=== PATIENT | male | born 1940 | race Asian ===

== ENCOUNTER 2024-07-02 13:14 | Emergency (ER) | payer OTHER ==
[~2024-07-02] VITALS: Ht 172.7 cm; Wt 55.0 kg
[2024-07-02 13:16] VITALS: O2SAT 100
[2024-07-02] MEDS: SODIUM CHLORIDE 0.9% 1,000 ML IV ONE (13:39)
[2024-07-02 13:47] LABS: BASOPHILS % 0.5 % (0.0-2.0); DIFFERENTIAL COMMENT 0; EOSINOPHILS % 0.5 % (0.0-5.0); HEMOGLOBIN. 12.7 g/dL (14.0-18.0); LYMPHOCYTES % 12.3 % (20.0-50.0); MEAN CORPUSCULAR HEMOGLOBIN 22.2 pg (28.0-32.0); MEAN CORPUSCULAR VOLUME 71.6 fL (80.0-94.0); MEAN PLATELET VOLUME 7.6 fl (7.4-10.4); MONOCYTES % 7.4 % (2.0-8.0); NEUTROPHILS % 79.3 % (40.0-76.0); PLATELET 169 x1000/uL (130-400); RED BLOOD CELL COUNT 5.73 mill/uL (4.7-6.1); WHITE BLOOD COUNT 5.3 x1000/uL (4.5-11.0)
[2024-07-02 13:48] LABS: CHLORIDE 100 mEq/L (98-107); POTASSIUM 3.8 mEq/L (3.5-5.1); SODIUM 135 mEq/L (136-145)
[2024-07-02 13:49] LABS: CARBON DIOXIDE 31 mEq/L (21-32)
[2024-07-02 13:53] LABS: PROTHROMBIN TIME 10.9 sec (9.6-11.0)
[2024-07-02 13:54] LABS: CREATININE 1.1 mg/dL (0.6-1.3); GLUCOSE 124 mg/dL (70-105)
[2024-07-02 13:55] LABS: TROPONIN I HIGH SENSITIVITY 4 ng/L (3.0-53); UREA NITROGEN BLOOD 18 mg/dL (9-23)
[2024-07-02 16:00] VITALS: BP 121/61; PULSE 84; RESP 16; TEMP 36.89184; O2SAT 100
== END 2024-07-02 16:16 | disposition home or self-care (01) ==
LOC: EDBD 13:14 → ER 13:14
DX: R55 Syncope and collapse (principal)
CPT/HCPCS: 99284; 80048; 85025; 85610; 84484; 36415; 93005; J7030

== ENCOUNTER 2024-08-22 14:58 | Emergency (ER) | payer OTHER ==
[~2024-08-22] VITALS: Ht 167.6 cm; Wt 50.0 kg
[2024-08-22 20:10] LABS: HEMATOCRIT. 37.9 % (42.0-52.0); HEMOGLOBIN. 12.3 g/dL (14.0-18.0); MEAN CORPUSCULAR HEMOGLOBIN 22.3 pg (28.0-32.0); MEAN CORPUSCULAR HGB CONC 32.5 g/dL (31.0-37.0); MEAN CORPUSCULAR VOLUME 68.6 fL (80.0-94.0); MEAN PLATELET VOLUME 8.2 fl (7.4-10.4); PLATELET 140 x1000/uL (130-400); RED BLOOD CELL COUNT 5.52 mill/uL (4.7-6.1); RED CELL DISTRIBUTION WIDTH 15.4 % (11.6-14.6); WHITE BLOOD COUNT 8.1 x1000/uL (4.5-11.0)
[2024-08-22 20:11] LABS: DIFFERENTIAL COMMENT 1
[2024-08-22 20:14] LABS: CHLORIDE 96 mEq/L (98-107); POTASSIUM 3.9 mEq/L (3.5-5.1); SODIUM 129 mEq/L (136-145)
[2024-08-22 20:15] LABS: CARBON DIOXIDE 28 mEq/L (21-32)
[2024-08-22 20:16] LABS: CALCIUM 8.7 mg/dL (8.7-10.4)
[2024-08-22 20:20] LABS: CREATININE 0.9 mg/dL (0.6-1.3); GLUCOSE 121 mg/dL (70-105)
[2024-08-22 20:21] LABS: UREA NITROGEN BLOOD 17 mg/dL (9-23)
[2024-08-22 20:47] LABS: CLARITY URINE CLOUDY (CLEAR); COLOR URINE YELLOW (YELLOW); GLUCOSE URINE NEGATIVE (NEGATIVE); KETONES URINE NEGATIVE (NEGATIVE); OCCULT BLOOD URINE 1+ (NEGATIVE); PROTEIN URINE TRACE (NEGATIVE); SPECIFIC GRAVITY URINE 1.018 (1.005-1.030)
[2024-08-22 20:48] LABS: NITRITE URINE NEGATIVE (NEGATIVE)
[2024-08-22 20:49] LABS: LEUKOCYTE ESTERASE URINE 2+ (NEGATIVE)
[2024-08-22 20:59] LABS: BACTERIA URINE 4+; SQUAMOUS EPITHELIAL CELL URINE FEW /lpf (RARE/1+); WBC URINE 25-50 /hpf (0-2)
[2024-08-22] MEDS: SODIUM CHLORIDE 0.9% 1,000 ML IV ONE (21:05)
[2024-08-22 21:59] LABS: ANISOCYTOSIS 1+; HYPOCHROMASIA 1+; MICROCYTOSIS 3+; PLATELET ESTIMATE NORMAL
[2024-08-22] MEDS: CEFTRIAXONE 1GM/50ML 50 ML IV ONE (22:09)
[2024-08-22] MEDS ORDERED: CEPH500T MT (23:45)
[2024-08-23 00:26] VITALS: BP 179/89; PULSE 86; RESP 16; TEMP 36.89184; O2SAT 97
== END 2024-08-23 00:39 | disposition home or self-care (01) ==
LOC: ER 15:32
DX: N39.0 Urinary tract infection, site not specified (principal); E87.1 Hypo-osmolality and hyponatremia
CPT/HCPCS: 99284; 96365; 96361; 96366; 80048; 81003; 85025; 87086; 87186; 87077; 36415; J0696; J7030